=== PATIENT | female | born 1990 | race African-American/Black ===

== ENCOUNTER 2020-06-04 09:54 | Emergency (ER) | payer SELFPAY ==
--- NOTE | 2020-06-04 10:33 | EDM.PDOC ---
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 She is 17 weeks gestation. She is with a LNMP of February 04. Her OB doctor is Dr Hagen. This morning when she went to the bathroom, she passed a clot. She has had no bleeding since. She has no pain such as cramping. She has no fever, chills, cough, chest pain, shortness of breath, abdominal pain, nausea or vomiting. 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: Musculoskeletal History: Reports: None Neurological History: Reports: None Psychiatric History: Reports: None Endocrine/Metabolic History: Reports: None Hematologic History: Reports: Other (See Below) Other Hematologic History: thelissia- red blood cells are not normal recommended to take folic acid vitamins Immunologic History: Reports: None Oncologic (Cancer) History: Reports: None Dermatologic History: Reports: None - Infectious Disease History Infectious Disease History: Reports: Chicken Pox - Past Surgical History Head Surgeries/Procedures: Reports: None HEENT Surgical History: Reports: Oral Surgery Female Surgical History: Reports: Section Social & Family History - Family History Family Medical History: No Pertinent Family History Cardiac: Reports: Hypertension Endocrine/Metabolic: Reports: Hypothyroidism Hematologic: Reports: Other (See Below) Other Hematologic Family History: lupus - Tobacco Use Tobacco Use Status *Q: Never Tobacco User - Caffeine Use Caffeine Use: Reports: Soda, Tea - Recreational Drug Use Recreational Drug Use: No ED ROS GENERAL - Review of Systems Review Of Systems: See Below Constitutional: Reports: No Symptoms HEENT: Reports: No Symptoms Respiratory: Reports: No Symptoms Cardiovascular: Reports: No Symptoms Endocrine: Reports: No Symptoms GI/Abdominal: Reports: No Symptoms : Reports: Other (Vaginal bleeding) Musculoskeletal: Reports: No Symptoms Skin: Reports: No Symptoms ED EXAM - Physical Exam Exam: See Below Exam Limited By: No Limitations General Appearance: Alert, No Apparent Distress Ears: Normal External Exam Nose: Normal Inspection Head: Atraumatic, Normocephalic Neck: Normal Inspection Respiratory/Chest: No Respiratory Distress, Lungs Clear, Normal Breath Sounds Cardiovascular: Regular Rate, Rhythm, No Edema, No Murmur GI/Abdominal Exam: Soft, No Organomegaly, No Mass, Other (Gravid uterus above th e pelvis) Extremities: Normal Inspection Neurological: Alert, Oriented, No Motor/Sensory Deficits Course - Vital Signs Last Recorded V/S: Last Vital Signs Temp 97.1 F 06/04/20 10:04 Pulse 86 06/04/20 10:04 Resp 18 06/04/20 10:04 BP 131/77 06/04/20 10:04 Pulse Ox 100 06/04/20 10:04 - Orders/Labs/Meds Orders: Active Orders 24 hr Category Date Time Status Vaginal Exam [RC] PRN Care 06/04/20 10:16 Active OB Ltd 1 or More Fetus [US] Stat Exams 06/04/20 10:16 Taken PATIENT RETYPE [BBK] Routine Lab 06/04/20 11:35 Ordered UA W/MICROSCOPIC [URIN] Stat Lab 06/04/20 13:18 Results Labs: Laboratory Tests 06/04/20 06/04/20 06/04/20 Range/Units 10:35 10:35 13:18 WBC 5.95 (3.98-10.04) K/mm3 RBC 4.49 (3.98-5.22) M/mm3 Hgb 10.5 L (11.2-15.7) gm/dl Hct 32.4 L (34.1-44.9) % MCV 72.2 L (79.4-94.8) fl MCH 23.4 L (25.6-32.2) pg MCHC 32.4 (32.2-35.5) g/dl RDW Std Deviation 35.3 L (36.4-46.3) fL Plt Count 287 (182-369) K/mm3 MPV 10.7 (9.4-12.3) fl Neut % (Auto) 66.3 (34.0-71.1) % Lymph % (Auto) 27.1 (19.3-51.7) % [place]cd[place]ough % (Auto) 6.2 (4.7-12.5) % Eos % (Auto) 0.2 L (0.7-5.8) Baso % (Auto) 0.2 (0.1-1.2) % Neut # (Auto) 3.95 (1.56-6.13) K/mm3 Lymph # (Auto) 1.61 (1.18-3.74) K/mm3 Mcdonough # (Auto) 0.37 H (0.24-0.36) K/mm3 Eos # (Auto) 0.01 L (0.04-0.36) K/mm3 Baso # (Auto) 0.01 (0.01-0.08) K/mm3 Manual Slide Review Abnormal smear Urine Color Yellow (Yellow) Urine Appearance Clear (Clear) Urine pH 7.0 (5.0-8.0) Ur Specific [place] 1.020 (1.005-1.030) Urine Protein Negative (Negative) Urine Glucose (UA) Negative (Negative) Urine Ketones Negative (Negative) Urine Occult Blood 2+ H (Negative) Urine Nitrite Negative (Negative) Urine Bilirubin Negative (Negative) Urine Urobilinogen 0.2 (0.2-1.0) Ur Leukocyte Esterase Trace H (Negative) Blood Type O POSITIVE - Re-Assessments/Exams Free Text/Narrative Re-Assessment/Exam: 06/04/20 10:33 I ordered labs and an US and I will do a pelvic exam after the US. 06/04/20 13:52 Her Hgb was low at 10.5. Her UA shows no UTI. Her blood type is O positive. The US shows single live intrauterine gestation in vertex presentation with estimated gestational age of 17 weeks 5 days. Severe oligohydramnios. Biparietal diameter and head circumference lag behind abdominal circumference by 2 or more weeks. Questionable minimal flattening of the frontal bones bilaterally, and abdominal circumference measurement, typically obtained in the transverse plane is either slightly oblique or there may be flattening of the abdomen as well. The possibility of mass effect on compression of the fetus is raies. Large elongated area posterior to the mid placenta measuring 7.8 X 2.5 X 2.0 cm of uncertain etiology. This is more echogenic than typically expected for retroplacental hemorrhage abruption, but this is in the differential. Placental mass is not excluded. Recommend follow up during gestation and after delivery. I called Dr Portillo and she said the patient is safe to go home and follow up with Dr Hagen. She will message Dr Hagen. The patient will need to ge to maternofetal medicine and be assessed. The patient said she may have had clear liquid leak yesterday. There is nothing we can do about that. She is at higher risk for spontaneous . I let the patient know that and she will return if she has pain or more bleeding. Departure - Departure Time of Disposition: 14:00 Disposition: Home, Self-Care 01 Condition: Good Clinical Impression: Vaginal bleeding during Qualifiers: Weeks of gestation: 17 weeks Qualified Code(s): Z3A.17 - 17 weeks gestation of - Discharge Information *PRESCRIPTION DRUG MONITORING PROGRAM REVIEWED*: Not Applicable *COPY OF PRESCRIPTION DRUG MONITORING REPORT IN PATIENT JAZMYNE: Not Applicable Referrals: Ayah Hagen MD [Primary Care Provider] - 3 Days Forms: ED Department Discharge Additional Instructions: Drink plenty of fluids. No intercourse until cleared by Dr Hagen. Please return if you have pain or more bleeding. Sepsis Event Note (ED) - Evaluation Sepsis Screening Result: No Definite Risk - Focused Exam Vital Signs: Vital Signs Temp Pulse Resp BP Pulse Ox 06/04/20 10:04 97.1 F 86 18 131/77 100 - My Orders Last 24 Hours: My Active Orders 06/04/20 10:16 Vaginal Exam [RC] PRN OB Ltd 1 or More Fetus [US] Stat 06/04/20 11:35 PATIENT RETYPE [BBK] Routine 06/04/20 13:18 UA W/MICROSCOPIC [URIN] Stat - Assessment/Plan Last 24 Hours: My Active Orders 06/04/20 10:16 Vaginal Exam [RC] PRN OB Ltd 1 or More Fetus [US] Stat 06/04/20 11:35 PATIENT RETYPE [BBK] Routine 06/04/20 13:18 UA W/MICROSCOPIC [URIN] Stat
--- NOTE | 2020-06-05 12:10 | US ---
Limited obstetrical: Multiple real-time images were obtained transabdominally. Comparison: No previous study. Dates: B[facility] 11/07/20, gestational age - 17 weeks 5 days presentation: Cephalic Placenta: Posterior which shows hypoechoic area within the posterior placenta suggesting possibility of abruption and hematoma. Amniotic fluid: Very decreased with NORMA of 2.03 cm (this oligohydramnios makes evaluation of the anatomic structures very difficult) Measurements: BPD: 3.32 cm - 16 weeks 3 days Head circumference: 12.76 cm - 18 weeks 4 days Abdominal circumference: 13.30 cm - 18 weeks 6 days Femur length: 2.78 cm - 18 weeks 4 days Estimated weight: 236 g (0 lbs. 8 oz.), estimated weight at the 84th percentile for age by ultrasound Heart rate: 155 bpm Cervical length: 4.2 cm Impression: 1. Single intrauterine fetus currently cephalic in presentation. Dates as noted above. 2. Findings suggestive of placenta previa with hematoma. 3. Very low amniotic fluid compatible with oligohydramnios. Diagnostic code #5 I agree with preliminary report from [facility] finalized on 06/04/20, 2:26 PM CDT
== END 2020-06-04 14:15 | disposition home or self-care (01) ==
LOC: JD.ED 09:54
DX: O20.9 Hemorrhage in early pregnancy, unspecified (principal); Z3A.17 17 weeks gestation of pregnancy
CPT/HCPCS: 36415; 76815; 76815-26; 81001; 85025; 86900; 86901; 99283; 99284-25

== ENCOUNTER 2020-06-06 20:40 | Emergency (ER) | payer SELFPAY ==
--- NOTE | 2020-06-06 21:01 | EDM.PDOC ---
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 Cardenas is a pleasant 29-year-old woman who, medical records indicate, was seen in this ED 2 days ago, 06/04/2020 with a threatened at about 17 weeks gestation, G2, P1. She had passed a small clot that morning. She had not had any bleeding since. No pain or cramping. She was found to be hemodynamically stable, afebrile, saturating 100% on room air. Her physical exam was grossly unremarkable. Work-up included a CBC, blood type, urinalysis, and obstetric ultrasound. Her CBC and urinalysis were unremarkable. Her blood type is O-Pos. The ultrasound found a SLIUP at 17 weeks 5 days, but with severe oligohydramnios, along with biparietal diameter and head circumference lagging behind abdominal circumference by 2 more weeks, and questionable minimal flattening of the frontal bones bilaterally, along with possible flattening of the abdomen, as well. These findings were felt to be due to uterine compression of the fetus. A large retroplacental hemorrhage abruption was also felt possible, although not definitively diagnosed. The patient was discharged home with recommendation to follow-up with her CERTIFIED NURSE MIDWIFE. The patient now returns the ED stating that since she was discharged, she was unable to follow-up with her CERTIFIED NURSE MIDWIFE, as she does not have office hours on Mondays. She states that she developed pelvic cramping today along with slight spotting. Around 1920 this evening, she noticed that she is passing some tissue. No recent fever, nausea, vomiting, or urinary symptoms. The patient states that she last ate around 16:00 this afternoon, however, she states that she had a piece of candy just prior to 20:00. Here in the ED tonight, the patient is found to be hemodynamically stable, afebrile, saturating 98% on room air. Prior to 06/04/2020, the patient denies having a recent fever, chills, sore thro at, ear pain, nasal or sinus congestion, cough, dyspnea, chest pain, palpitations, nausea, vomiting, constipation, diarrhea, abdominal pain, urinary symptoms, recent weight gain or weight loss, recent bloody bowel movements or black bowel movements, recent joint aches, headaches, or rashes. The patient does not have a PCP. Her CERTIFIED NURSE MIDWIFE is Dr. Ayah Hagen. Pelvic Pain Score (Numeric/FACES): 8 - Related Data Allergies Allergy/AdvReac Type Severity Reaction Status Date / Time No Known Allergies Allergy Verified 06/04/20 10:00 Home Meds: Home Meds Mv-Mn/Iron/FA/Herbal/Digestive [ One Tablet] 1 tab PO DAILY 06/04/20 [History] miSOPROStoL [Cytotec] 400 mcg PO Q6H #8 tablet 06/06/20 [Rx] oxyCODONE HCl/Acetaminophen [Percocet 5-325 mg Tablet] 1 - 2 each PO Q6H PRN #12 tablet 06/06/20 [Rx] Past Medical History : 2 Para: 1 Hematologic History: Reports: Anemia (Thalassemia) - Infectious Disease History Infectious Disease History: Reports: Chicken Pox - Past Surgical History HEENT Surgical History: Reports: Oral Surgery (dental extractions) Female Surgical History: Reports: Section (x 1) Social & Family History - Tobacco Use Tobacco Use Status *Q: Never Tobacco User - Caffeine Use Caffeine Use: Reports: None - Alcohol Use Alcohol Use History: No - Recreational Drug Use Recreational Drug Use: No - Living Situation & Occupation Living situation: Reports: Single, with Family (Son) 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 ED EXAM - Physical Exam Exam: See Below Exam Limited By: No Limitations General Appearance: Alert, WD/WN, No Apparent Distress Eye Exam: Bilateral Eye: EOMI, Normal Inspection Ears: Normal External Exam, Hearing Grossly Normal Nose: Normal Inspection Throat/Mouth: Normal Inspection, Normal Lips, Normal Voice, No Airway Compromise Head: Atraumatic, Normocephalic Neck: Normal Inspection, Full Range of Motion Respiratory/Chest: No Respiratory Distress, Lungs Clear, Normal Breath Sounds, No Accessory Muscle Use Cardiovascular: Normal Peripheral Pulses, Regular Rate, Rhythm, No Edema, No Gallop, No JVD, No Murmur, No Rub GI/Abdominal Exam: Normal Bowel Sounds, Soft, No Organomegaly, No Distention, No Abnormal Bruit, No Mass, Tender (mild pelvic only, nontender elsewhere) (Female) Exam: Other (The fetus is entirely outside of the vagina, attached by the umbilical cord. On speculum exam, it appears that the placenta is likely entrapped within the cervix, as some placenta is visible within the proximal vagina, but it did not move when I placed the speculum. I did not tug on the umbilical ) Back Exam: Normal Inspection, Full Range of Motion, NT Extremities: Normal Inspection, Normal Range of Motion, Normal Capillary Refill Neurological: Alert, Oriented, Normal Cognition, No Motor/Sensory Deficits Psychiatric: Normal Affect Skin Exam: Warm, Dry, Intact, Normal Color, No Rash Course - Vital Signs Last Recorded V/S: Last Vital Signs Temp 36.2 C 06/06/20 20:50 Pulse 87 06/07/20 01:15 Resp 16 06/07/20 01:15 BP 124/72 06/07/20 01:15 Pulse Ox 98 06/07/20 01:15 - Orders/Labs/Meds Meds: Medications Discontinued Medications Generic Name Dose Route Start Last Admin Trade Name Freq PRN Reason Stop Dose Admin Hydromorphone HCl 0.5 mg 06/06/20 21:18 06/06/20 21:22 Hydromorphone 0.5 Mg/0.5 Ml Syringe IVPUSH 06/06/20 21:19 0.5 mg ONETIME ONE Administration Sodium Chloride 1,000 mls @ 100 mls/hr 06/06/20 21:30 06/06/20 21:15 Normal Saline IV 100 mls/hr ASDIRECTED HAIM Administration Misoprostol 800 mcg 06/06/20 22:45 06/06/20 23:21 Misoprostol 200 Mcg Tab PO 06/06/20 22:46 800 mcg ONETIME STA Administration Ondansetron HCl 4 mg 06/06/20 21:18 06/06/20 21:20 Ondansetron 4 Mg/2 Ml Sdv IVPUSH 06/06/20 21:19 4 mg ONETIME ONE Administration - Re-Assessments/Exams Free Text/Narrative Re-Assessment/Exam: 06/06/20 20:59 As above, the patient is approximately 18 weeks 0 days gestation, seen in this ED 2 days ago after passing a clot, with an ultrasound at that time finding a SLIUP, but with severe oligohydramnios and likely compression by the uterus. She states that since that time, she was unable to follow-up with Dr. Hagen, as Dr. Hagen's office is apparently not open on Mondays. She states that she developed pelvic cramping and slight spotting today, then, around 19:20 this evening, she noticed the passing of some tissue. I have asked to have the patient placed into our gynecology examination room. 06/06/20 21:54 On pelvic examination, the fetus is entirely outside of the vagina, attached by the umbilical cord. On speculum exam, it appears that the placenta is likely entrapped within the cervix, as some placenta is visible within the proximal vagina, but it did not move when I placed the speculum. I did not tug on the umbilical cord. There was some blood clot and dark blood in the vagina, but it does not appear that the patient is actively bleeding. Case discussed with Dr. Pyle at 21:50. He will come to the ED to evaluate the patient. 06/06/20 22:52 Dr. Pyle has finished evaluating the patient. He stated that he removed the uterus manually, and checked an ultrasound. He is recommending that we give her take 800 mg po x 1 year in the ED, then keep her until around 00:30 for observation. She may pass some additional blood or clots. Provided she is doing well by 00:30, she can be discharged home. Dr. Pyle will submit a prescription for additional Cytotec that the patient can fill at the pharmacy in the morning. She can then follow-up with Dr. Hagen as an outpatient. 06/07/20 01:08 The patient has done well. No significant bleeding. I will discharge her home with the above plan. Departure - Departure Time of Disposition: 01:08 Disposition: Home, Self-Care 01 Condition: Good Clinical Impression: Spontaneous in second trimester - Discharge Information *PRESCRIPTION DRUG MONITORING PROGRAM REVIEWED*: Not Applicable *COPY OF PRESCRIPTION DRUG MONITORING REPORT IN PATIENT JAZMYNE: Not Applicable Prescriptions: miSOPROStoL [Cytotec] 400 mcg PO Q6H #8 tablet oxyCODONE HCl/Acetaminophen [Percocet 5-325 mg Tablet] 1 - 2 each PO Q6H PRN #12 tablet PRN Reason: Pain Instructions: Managing Loss Referrals: Ayah Hagen MD [Primary Care Provider] - Forms: ED Department Discharge Additional Instructions: You were seen in the emergency room after suffering a miscarriage this evening. You were evaluated by the CERTIFIED NURSE MIDWIFE Dr. Eddi Pyle in the ER. You were started on Cytotec in the ER, a medicine that will help stop your vaginal bleeding. An additional prescription for Cytotec has been sent to your pharmacy. Fill the prescription in the morning and take it as prescribed. We recommend that you follow-up with your CERTIFIED NURSE MIDWIFE, Dr. Ayah Hagen, at the next available appointment. If any other problems, please do not hesitate to return to the ER. Sepsis Event Note (ED) - Evaluation Sepsis Screening Result: No Definite Risk - Focused Exam Vital Signs: Vital Signs Temp Pulse Resp BP Pulse Ox 06/07/20 01:15 87 16 124/72 98 06/06/20 20:50 36.2 C 93 20 119/71 98
[2020-06-06] MEDS ORDERED: Ondansetron 4 MG/2 ML SDV IVPUSH ONE (21:18)
[2020-06-06] MEDS ORDERED: HYDROmorphone 0.5 MG/0.5 ML Syringe IVPUSH ONE (21:18)
[2020-06-06] MEDS ORDERED: Sodium Chloride 0.9% 1,000 ML IV SCH (21:30)
[2020-06-06] MEDS ORDERED: Misoprostol 200 MCG Tab PO STA (22:45)
--- NOTE | 2020-06-06 23:23 | PCM.CONS ---
H&P History of Present Illness - General Date of Service: 06/06/20 Admit Problem/Dx: Second trimester Source of Information: Patient History Limitations: Reports: No Limitations - History of Present Illness Initial Comments - Free Text/Narative: Kimberly Cardenas is a 29-year-old -0-1-1 female who was at 18 weeks gestational age who presented to the emergency department with spontaneous a bortion at home. Patient had been seen in the emergency department on 06/04/2020 after she had bleeding and vaginal discharge. She had ultrasound done at that time that showed an measuring at 17 weeks 5 days but did not have any fluid around the . There was noted to be a retroplacental mass. Patient was recommended to have follow-up with her [employer] physician, Dr. Hagen, and she had an appointment scheduled on 06/07/2020 with her. She states that earlier this evening she had increased amounts of cramping and pain in her lower abdomen and pelvis and then while she was at home passed the fetus without significant difficulty. The emergency department physician performed an exam and attempted to remove the placenta but felt that it was trapped at the cervical opening. Patient reports that she had been passing medium sized clots that were about the size of a half dollar or slightly larger. She denies any symptoms from blood loss such as chest pain, shortness of breath or lightheadedness. Onset of Symptoms: Reports: Today Duration of Symptoms: Reports: Hour(s): Location: Reports: Pelvis Quality: Reports: Pressure, Throbbing Severity: Severe Pelvic Pain Score (Numeric/FACES): 8 - Related Data Allergies/Adverse Reactions: Allergies Allergy/AdvReac Type Severity Reaction Status Date / Time No Known Allergies Allergy Verified 06/04/20 10:00 Home Medications: Home Meds Mv-Mn/Iron/FA/Herbal/Digestive [ One Tablet] 1 tab PO DAILY 06/04/20 [History] Past Medical History HEENT History: Reports: None Cardiovascular History: Reports: None Respiratory History: Reports: None Gastrointestinal History: Reports: None Genitourinary History: Reports: None [employer] History: Reports: , Spontaneous (at home of 18 week ) : 2 Para: 1 Musculoskeletal History: Reports: None Neurological History: Reports: None Psychiatric History: Reports: None Endocrine/Metabolic History: Reports: None Hematologic History: Reports: Anemia (Thalassemia) Other Hematologic History: thelissia- red blood cells are not normal recommended to take folic acid vitamins Immunologic History: Reports: None Oncologic (Cancer) History: Reports: None Dermatologic History: Reports: None - Infectious Disease History Infectious Disease History: Reports: Chicken Pox - Past Surgical History HEENT Surgical History: Reports: Oral Surgery (dental extractions) Female Surgical History: Reports: Section (x 1) Social & Family History - Family History Family Medical History: No Pertinent Family History Cardiac: Reports: Hypertension Endocrine/Metabolic: Reports: Hypothyroidism Hematologic: Reports: Other (See Below) Other Hematologic Family History: lupus - Tobacco Use Tobacco Use Status *Q: Never Tobacco User - Caffeine Use Caffeine Use: Reports: None - Recreational Drug Use Recreational Drug Use: No - Living Situation & Occupation Living situation: Reports: Single, with Family (Son) 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 Denies: Dysuria, Frequency, Burning, Pain Skin: Denies: Rash, Lesions Exam - Exam Exam: See Below - Vital Signs Vital Signs: Last Vital Signs Temp 36.2 C 06/06/20 20:50 Pulse 93 06/06/20 20:50 Resp 20 06/06/20 20:50 BP 119/71 06/06/20 20:50 Pulse Ox 98 06/06/20 20:50 Weight: 95.254 kg - Exam General: Alert, Oriented HEENT: EOMI Neck: Supple, Trachea Midline Lungs: Normal Respiratory Effort GI/Abdominal Exam: Soft, Non-Tender, No Distention. No: Guarding, Rigid, Rebound (Female) Exam: Normal External Exam (with moderate amount of blood on perineum), Other (Fetus connected to umbilical cord coming from the vagina) Neuro Extensive - Mental Status: Normal Mood/Affect Psychiatric: Alert, Normal Affect, Normal Mood Sepsis Event Note - Evaluation Sepsis Screening Result: No Definite Risk - Focused Exam Vital Signs: Vital Signs Temp Pulse Resp BP Pulse Ox 04/12/21 20:50 36.2 C 93 20 119/71 98 Consult PN Assessment/Plan (1) Second trimester SNOMED Code(s): 387999855 Code(s): Z33.2 - ENCOUNTER FOR ELECTIVE TERMINATION OF Current Visit: Yes Problem List Initiated/Reviewed/Updated: Yes Plan: Kimberly Cardenas is a 29-year-old -0-1-1 female with spontaneous at home at 18 weeks gestational age Patient had presented to the emergency department and had passed to the fetus at home spontaneously. On arrival to the emergency department physician attempted to remove the placenta but noted some resistance and had concerns for possible retained placenta. The emergency department physician contacted myself, Dr. Pyle, for additional evaluation and management. On initial exam there was noted to be a grossly normal-appearing fetus still connected to the umbilical cord going into the vagina. The umbilical cord was cut and the fetus was placed in a receptacle for further evaluation after additional evaluation. The fetus was then examined and noted to be grossly normal except for slight flattening of the head in the lateral position. This was suspected to be due to compression with loss of amniotic fluid following premature rupture of membranes on 06/04/2020. The remainder of the evaluation was normal. There were no abnormalities noted on the . The placenta was then grasped and able to be removed with the majority of the placenta intact and this was placed in a separate container additional evaluation was performed and there was noted to be small amount of placenta still within the vaginal canal. This was also removed. An additional bimanual exam was performed and there was no additional placenta that was felt within the uterine cavity or in the vaginal canal. A bedside ultrasound was performed and the uterus was able to be visualized without difficulty. There did not appear to be any remnant placental tissue within the endometrial cavity. The endometrial thickness was normal at 1.62 cm. * After removal of the placenta patient had several blood clots removed from the vagina but no bleeding noted at this time. * Recommend for patient to receive 800 mcg of Cytotec sublingual or buccally in the emergency department and be monitored for 1.5 to 2 hours after dosing to see if she is having any additional heavy bleeding. * If patient is having minimal bleeding after the medication patient may be discharged home * Patient did not have significant blood loss and had a normal hematocrit and hemoglobin on previous evaluation on 06/04/2020. Do not suspect that she is suffering from acute blood loss anemia at this time. No additional evaluation needed unless otherwise indicated. * Patient had blood typing done at previous visit and this was reviewed. Patient has O+ blood type and would not be a candidate for RhoGam at this time. * Offered testing of the genetics for the infant as well as additional blood tests on the mom but she declined any additional testing at this time. * The fetus and placenta will be sent to the pathology department for disposal. * Patient to take 2 additional doses of Cytotec 400 mcg buccally or sublingually in the morning of 06/07/2020. We will also send a prescription for pain medication for the patient. * Patient is scheduled for an appointment with Dr. Hagen on 06/07/2020 at 1:45 PM. Recommend for her to keep this appointment. Eddi Pyle MD 11:33 PM 06/06/2020 Requesting Provider: Omar Hinson Date Consult Requested: 06/06/20 Reason for Consult: Incomplete second trimester Patient History Reviewed: Yes Notified Requestor: Yes
== END 2020-06-07 01:15 | disposition home or self-care (01) ==
LOC: JD.ED 20:40
DX: O03.9 Complete or unspecified spontaneous abortion without complication (principal)
CPT/HCPCS: 96374; 96375; 99284; A9270; J1170; J2405; J7030; 99283